=== PATIENT | female | born 1975 | race Caucasian/White ===

== ENCOUNTER 2017-11-16 19:30 | Inpatient (IN) | payer OTHER ==
[~2017-11-16] VITALS: Ht 167.6 cm; Wt 85.0 kg
[2017-11-16 20:50] LABS: BASOPHIL % 0.9 % (0-2); PLATELET COUNT 269 x10^3mcL (130-400); RED CELL DISTRIBUTION WIDTH 17.2 % (11.5-14.5)
[2017-11-16 21:00] LABS: rbc morphology (normal/abnorm) ABNORMAL (NORMAL)
[2017-11-16 21:01] LABS: CALCIUM 7.9 mg/dL (8.5-10.1); CARBON DIOXIDE 27.5 mmol/L (21-32); CHLORIDE SERUM 109 mmol/L (98-107); CREATININE SERUM 0.7 mg/dL (0.6-1.0); GFR1 > 60 mL/min; GLUCOSE SERUM 94 mg/dL (74-106); POTASSIUM SERUM 3.5 mmol/L (3.5-5.1); SODIUM SERUM 141 mmol/L (136-145)
[2017-11-16 21:03] LABS: ovalocyte/elliptocyte 1+
[2017-11-16 21:07] LABS: ALBUMIN 3.1 g/dL (3.4-5.0); ALKALINE PHOSPHATASE 78 U/L (46-116); ALT/SGPT 17 U/L (14-59); AST/SGOT 12 U/L (15-37); BILIRUBIN TOTAL 0.4 mg/dL (0.20-1.00); LIPASE 208 IU/L (73-393); TOTAL PROTEIN, SERUM 6.7 g/dL (6.4-8.2)
[2017-11-16 21:20] LABS: microscopic required? YES; urine erythrocyte NEGATIVE (NEGATIVE)
[2017-11-17] MEDS ORDERED: XANAX0.5 MG GT (00:56)
[2017-11-17 01:13] LABS: T3 TOTAL 0.87 ng/mL
[2017-11-17 01:30] LABS: MAGNESIUM 1.9 mg/dL (1.8-2.4); PHOSPHOROUS 3.4 mg/dL (2.5-4.9)
[2017-11-17 01:32] LABS: CHOLESTEROL/HDL RATIO 2.4
[2017-11-17 01:40] VITALS: BP 124/86
[2017-11-17 01:49] LABS: FREE T4 0.92 ng/dL (0.76-1.46); FREE THYROXINE INDEX 2.7 ug/dL (1.4-4.5); T4(THYROXINE) 7.6 ug/dL (4.7-13.3)
[2017-11-17 05:50] VITALS: BP 99/54
[2017-11-17 07:30] LABS: CALCIUM 7.9 mg/dL (8.5-10.1); CARBON DIOXIDE 19.9 mmol/L (21-32); CHLORIDE SERUM 110 mmol/L (98-107); CREATININE SERUM 0.7 mg/dL (0.6-1.0); GFR1 > 60 mL/min; GLUCOSE SERUM 141 mg/dL (74-106); POTASSIUM SERUM 3.9 mmol/L (3.5-5.1); SODIUM SERUM 141 mmol/L (136-145)
[2017-11-17 07:34] LABS: BASOPHIL % 0.2 % (0-2); PLATELET COUNT 258 x10^3mcL (130-400)
[2017-11-17 07:48] LABS: RED CELL DISTRIBUTION WIDTH 17.6 % (11.5-14.5)
[2017-11-17 08:50] VITALS: BP 113/79
[2017-11-17 17:08] VITALS: BP 116/76
[2017-11-17 20:39] VITALS: BP 144/92
[2017-11-17 22:23] LABS: AMPHETAMINE QUAL UR NONE DETECTED (See below)
[2017-11-18 05:35] VITALS: BP 115/79
[2017-11-18 07:05] LABS: CALCIUM 7.9 mg/dL (8.5-10.1); CARBON DIOXIDE 24.6 mmol/L (21-32); CHLORIDE SERUM 109 mmol/L (98-107); CREATININE SERUM 0.6 mg/dL (0.6-1.0); GFR1 > 60 mL/min; GLUCOSE SERUM 87 mg/dL (74-106); POTASSIUM SERUM 3.7 mmol/L (3.5-5.1); SODIUM SERUM 143 mmol/L (136-145)
[2017-11-18 07:18] LABS: BASOPHIL % 0.4 % (0-2); PLATELET COUNT 302 x10^3mcL (130-400)
[2017-11-18 07:20] LABS: RED CELL DISTRIBUTION WIDTH 16.3 % (11.5-14.5)
[2017-11-18 09:43] VITALS: BP 148/84
[2017-11-18 17:37] VITALS: BP 144/84
[2017-11-18 21:14] VITALS: BP 142/86
[2017-11-19 04:55] VITALS: BP 128/86
[2017-11-19 06:08] LABS: BASOPHIL % 0.5 % (0-2); PLATELET COUNT 290 x10^3mcL (130-400)
[2017-11-19 06:16] LABS: RED CELL DISTRIBUTION WIDTH 17.1 % (11.5-14.5)
[2017-11-19 06:27] LABS: CALCIUM 7.8 mg/dL (8.5-10.1); CARBON DIOXIDE 29.2 mmol/L (21-32); CHLORIDE SERUM 106 mmol/L (98-107); CREATININE SERUM 0.6 mg/dL (0.6-1.0); GFR1 > 60 mL/min; GLUCOSE SERUM 81 mg/dL (74-106); POTASSIUM SERUM 3.8 mmol/L (3.5-5.1); SODIUM SERUM 141 mmol/L (136-145)
[2017-11-19] MEDS ORDERED: TRAMADOL HCL50 MG PO (08:59)
[2017-11-19 09:44] VITALS: BP 138/91
[2017-11-19 13:19] VITALS: BP 138/91
[2017-11-19 17:05] VITALS: BP 98/67
== END 2017-11-19 20:55 | disposition left against medical advice (07) | DRG 690 ==
LOC: ED 19:30 → MU 11-17 00:22
PROVIDERS: Emergency Medicine; Family Medicine
DX: N39.0 Urinary tract infection, site not specified (principal); E44.0 Moderate protein-calorie malnutrition; E83.51 Hypocalcemia; D50.9 Iron deficiency anemia, unspecified; F12.10 Cannabis abuse, uncomplicated; Z93.3 Colostomy status; Z98.84 Bariatric surgery status; Z68.29 Body mass index [BMI] 29.0-29.9, adult; Z53.29 Procedure and treatment not carried out because of patient's decision for other reasons
CPT/HCPCS: 83880; 84439; J0696; J1885; J2060; J2270; J2405; J2550; J2930; J3010; J3490; J7030; Q0092; Q0162; Q0163; Q9966; Q9967

== ENCOUNTER 2018-04-22 19:57 | Emergency (ER) | payer OTHER ==
[~2018-04-22] VITALS: Ht 167.6 cm; Wt 90.7 kg
[~2018-04-22 19:57] MED LIST: TRAMADOL HCL50 MG PO; XANAX0.5 MG GT
[2018-04-22 20:43] VITALS: Ht 167.6 cm; Wt 90.7 kg
[2018-04-22 22:15] LABS: BASOPHIL % 0.5 % (0-2); PLATELET COUNT 289 x10^3mcL (130-400)
[2018-04-22 22:22] LABS: RED CELL DISTRIBUTION WIDTH 18.4 % (11.5-14.5)
[2018-04-22 22:26] LABS: CARBON DIOXIDE 26.3 mmol/L (21-32); CHLORIDE SERUM 107 mmol/L (98-107); CREATININE SERUM 0.6 mg/dL (0.6-1.0); GFR1 > 60 mL/min; GLUCOSE SERUM 100 mg/dL (74-106); POTASSIUM SERUM 3.6 mmol/L (3.5-5.1); SODIUM SERUM 140 mmol/L (136-145)
[2018-04-22 22:30] LABS: ALKALINE PHOSPHATASE 83 U/L (46-116); AMYLASE 77 U/L (25-115); AST/SGOT 15 U/L (15-37); BILIRUBIN TOTAL 0.43 mg/dL (0.20-1.00); LIPASE 198 IU/L (73-393); TOTAL PROTEIN, SERUM 6.8 g/dL (6.4-8.2)
[2018-04-22 22:45] LABS: ALT/SGPT 16 U/L (14-59)
[2018-04-22 23:00] LABS: microscopic required? NO
[2018-04-22 23:29] LABS: UA SPECIFIC GRAVITY 1.025 (1.005-1.035); urine erythrocyte NEGATIVE (NEGATIVE)
[2018-04-23 00:37] VITALS: BP 134/73
== END 2018-04-23 01:07 | disposition home or self-care (01) ==
LOC: ED 19:57
PROVIDERS: Specialist
DX: R10.84 Generalized abdominal pain (principal); R11.10 Vomiting, unspecified; F41.9 Anxiety disorder, unspecified; Z88.0 Allergy status to penicillin; Z88.8 Allergy status to other drugs, medicaments and biological substances; Z98.84 Bariatric surgery status; Z90.49 Acquired absence of other specified parts of digestive tract
CPT/HCPCS: J1885; J2270; J2405; J7030